=== PATIENT | male | born 1980 | race Caucasian/White ===

== ENCOUNTER 2018-11-06 10:26 | Emergency (ER) | payer OTHER ==
[2018-11-06] MEDS: NICARDipine HCL 30 MG CAPSULE PO (10:53)
== END 2018-11-06 12:40 | disposition home or self-care (01) ==
LOC: E/R 10:26
DX: I10 Essential (primary) hypertension (principal); Z76.0 Encounter for issue of repeat prescription; Z91.14 Patient's other noncompliance with medication regimen
CPT/HCPCS: 93005; 99283